=== PATIENT | female | born 1940 | race Caucasian/White ===

== ENCOUNTER 2017-06-17 09:48 | Emergency (ER) | payer MEDICARE ==
[~2017-06-17] VITALS: Ht 157.5 cm; Wt 70.0 kg
[2017-06-17 09:49] VITALS: BP 154/63; PULSE 69; RESP 20; TEMP 97.7; O2SAT 95
[2017-06-17] MEDS ORDERED: COUM7.5T PO (10:05)
[2017-06-17] MEDS ORDERED: COUM5TAB PO (10:05)
[2017-06-17] MEDS ORDERED: WARF-23 PO (10:06)
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
[2017-06-17] MEDS ORDERED: WARFARIN SOD 5 MG TAB PO ONE (10:15)
== END 2017-06-17 10:17 | disposition home or self-care (01) ==
LOC: NEPD 09:48
DX: Z76.0 Encounter for issue of repeat prescription (principal); I48.91 Unspecified atrial fibrillation; I10 Essential (primary) hypertension; E78.5 Hyperlipidemia, unspecified; M19.90 Unspecified osteoarthritis, unspecified site; Z79.01 Long term (current) use of anticoagulants
CPT/HCPCS: 99283